=== PATIENT | female | born 2005 | race African-American/Black ===

== ENCOUNTER 2024-06-03 07:41 | Emergency (ER) | payer MEDICAID ==
[~2024-06-03] VITALS: Ht 162.6 cm; Wt 58.0 kg
[2024-06-03 07:49] VITALS: O2SAT 99
[2024-06-03] MEDS: ONDANSETRON 4MG ODT PO ONE (08:28)
[2024-06-03 08:48] LABS: BASOPHILS % 0.3 % (0.0-2.0); HEMATOCRIT. 42.9 % (36.0-48.0); HEMOGLOBIN. 14.1 g/dL (12.0-16.0); LYMPHOCYTES % 14.6 % (20.0-50.0); MEAN CORPUSCULAR HEMOGLOBIN 27.5 pg (28.0-32.0); MEAN CORPUSCULAR HGB CONC 32.8 g/dL (31.0-37.0); MEAN CORPUSCULAR VOLUME 83.8 fL (81.0-99.0); MEAN PLATELET VOLUME 8.3 fl (7.4-10.4); MONOCYTES % 3.9 % (2.0-8.0); NEUTROPHILS % 81.2 % (40.0-76.0); PLATELET 299 x1000/uL (130-400); RED BLOOD CELL COUNT 5.12 mill/uL (4.2-5.4); RED CELL DISTRIBUTION WIDTH 13.8 % (11.6-14.6); WHITE BLOOD COUNT 6.9 x1000/uL (4.5-11.0)
[2024-06-03 08:59] LABS: CARBON DIOXIDE 27 mEq/L (21-32); CHLORIDE 103 mEq/L (98-107); POTASSIUM 3.3 mEq/L (3.5-5.1); SODIUM 139 mEq/L (136-145)
[2024-06-03 09:00] LABS: CALCIUM 10.4 mg/dL (8.7-10.4)
[2024-06-03 09:05] LABS: CREATININE 1.1 mg/dL (0.6-1.0); ETHANOL BLOOD < 10 mg/dL (<10); GLUCOSE 119 mg/dL (70-105); UREA NITROGEN BLOOD 10 mg/dL (9-23)
[2024-06-03 09:06] LABS: HCG SCREEN NEGATIVE
[2024-06-03 09:07] LABS: ALANINE AMINOTRANSFERASE 15 IU/L (10-49); ALBUMIN 4.6 g/dL (3.2-4.8); ASPARTATE AMINOTRANSFERASE 21 IU/L (<34); BILIRUBIN DIRECT 0.2 mg/dL (<=3.0); BILIRUBIN TOTAL 0.7 mg/dL (0.1-1.0); PROTEIN TOTAL 8.3 g/dL (6.0-8.3)
[2024-06-03] MEDS ORDERED: DICYCLOMINE 10 MG/5 ML ORAL SYR PO STA (09:12)
[2024-06-03] MEDS: FAMOTIDINE 20MG TABLET PO ONE (09:46)
[2024-06-03] MEDS: MAGNESIUM/ALUMINUM HYDROXIDE/SIMETHICONE 30ML UDC PO STA (09:46)
[2024-06-03] MEDS: DICYCLOMINE HCL 10MG CAPSULE PO NR (09:52)
[2024-06-03] MEDS ORDERED: ONDA-239 PO (09:53)
[2024-06-03 09:54] VITALS: BP 121/80; PULSE 78; RESP 18; TEMP 37.1; O2SAT 98
== END 2024-06-03 09:59 | disposition home or self-care (01) ==
LOC: ER 07:41
DX: R11.2 Nausea with vomiting, unspecified (principal); F12.90 Cannabis use, unspecified, uncomplicated
CPT/HCPCS: 80076; 80048; 81025; 80320; 84703; 83690; 85025; 36415; 99284; Q0162; G0480

== ENCOUNTER → 2024-06-07 | Emergency (ER) | payer MEDICAID ==
[~2024-06-07] VITALS: Ht 154.9 cm; Wt 60.6 kg
[~2024-06-07] MED LIST: ONDA-239 PO
[2024-06-07 01:07] VITALS: O2SAT 99
[2024-06-07 03:22] LABS: BASOPHILS % 0.5 % (0.0-2.0); EOSINOPHILS % 0.4 % (0.0-5.0); HEMATOCRIT. 44.6 % (36.0-48.0); HEMOGLOBIN. 14.9 g/dL (12.0-16.0); LYMPHOCYTES % 45.4 % (20.0-50.0); MEAN CORPUSCULAR HEMOGLOBIN 27.8 pg (28.0-32.0); MEAN CORPUSCULAR HGB CONC 33.5 g/dL (31.0-37.0); MEAN CORPUSCULAR VOLUME 82.8 fL (81.0-99.0); MONOCYTES % 9.2 % (2.0-8.0); NEUTROPHILS % 44.5 % (40.0-76.0); PLATELET 297 x1000/uL (130-400); RED BLOOD CELL COUNT 5.38 mill/uL (4.2-5.4); RED CELL DISTRIBUTION WIDTH 13.5 % (11.6-14.6); WHITE BLOOD COUNT 7.6 x1000/uL (4.5-11.0)
[2024-06-07 03:24] LABS: CLARITY URINE CLEAR (CLEAR); COLOR URINE DARK YELLOW (YELLOW); GLUCOSE URINE NEGATIVE (NEGATIVE); KETONES URINE 1+ (NEGATIVE); LEUKOCYTE ESTERASE URINE TRACE (NEGATIVE); NITRITE URINE NEGATIVE (NEGATIVE); OCCULT BLOOD URINE NEGATIVE (NEGATIVE); PH URINE 6.5 (4.5-8.0); PROTEIN URINE 1+ (NEGATIVE); SPECIFIC GRAVITY URINE 1.032 (1.005-1.030)
[2024-06-07 03:43] LABS: CHLORIDE 99 mEq/L (98-107); POTASSIUM 3.4 mEq/L (3.5-5.1); SODIUM 137 mEq/L (136-145)
[2024-06-07 03:44] LABS: CALCIUM 9.8 mg/dL (8.7-10.4); CARBON DIOXIDE 30 mEq/L (21-32)
[2024-06-07 03:49] LABS: GLUCOSE 93 mg/dL (70-105); UREA NITROGEN BLOOD 8 mg/dL (9-23)
[2024-06-07 03:51] LABS: ALANINE AMINOTRANSFERASE 117 IU/L (10-49); ALBUMIN 4.6 g/dL (3.2-4.8); ASPARTATE AMINOTRANSFERASE 48 IU/L (<34); BILIRUBIN TOTAL 1.1 mg/dL (0.1-1.0); PROTEIN TOTAL 8.3 g/dL (6.0-8.3)
[2024-06-07 04:05] VITALS: TEMP 36.9
[2024-06-07 04:10] LABS: SQUAMOUS EPITHELIAL CELL URINE 2+ /lpf (RARE/1+)
[2024-06-07 04:11] LABS: BACTERIA URINE 1+; MUCUS URINE 1+ /lpf (< = 2+); RBC URINE 0-2 /hpf (0-2)
[2024-06-07 04:49] VITALS: BP 125/74; PULSE 64; RESP 18; O2SAT 98
== END ==
LOC: ER 00:28
DX: R79.89 Other specified abnormal findings of blood chemistry (principal); F12.90 Cannabis use, unspecified, uncomplicated
CPT/HCPCS: 36415; 80053; 81003; 81025; 85025; 99283